=== PATIENT | female | born 1990 | race Caucasian/White ===

== ENCOUNTER 2018-09-10 09:45 | Inpatient (IN) ==
[2018-09-10] MEDS ORDERED: Sod Chloride 0.9% Inj 1,000 ML IV.CONT PRN (10:34)
[2018-09-10] MEDS ORDERED: fentaNYL Citrate Inj 100 MCG/2 ML Ampul IV.PUSH PRN ×2 (10:34)
[2018-09-10] MEDS ORDERED: Naloxone Inj 0.4 MG/ML Vial IV.PUSH PRN (10:34)
[2018-09-10] MEDS ORDERED: Oxytocin 30 Units/500ml Premix 30 UNITS/500 ML BAG IV.SIG ONE (10:34)
[2018-09-10] MEDS ORDERED: Sodium Chlor 0.9% Inj 500 ML IV.SIG PRN (10:34)
[2018-09-10] MEDS ORDERED: Citric Acid/Sodium Citrate Liq 30 ML UDC PO SCH (10:45)
--- NOTE | 2018-09-10 11:12 | P.HPOB ---
History of Present Illness Primary Care Physician: No Primary Care Physician Chief Complaint: back and left sided abdominal pain History of Present Illness: Patient is a 28-year-old (induced 6 weeks) at 40 / 0 weeks began to have left sided abdominal and back pain at a 4-5/10 and constant at 0600 today. She notes no aggravating or alleviating factors. She has had an uncomplicated up until this point and was scheduled for induction at 41 weeks. She did have two episodes of nonbloody bilious emesis this morning after trying to eat a piece of cake. No current nausea. She has no other symptoms at this time. Denies headache, dizziness, changes in vision, chest pain, palpitations, shortness of breath, dysuria, calf pain or tenderness. OB history: (induced 6 weeks) : Follows with Dr. Renee as an outpatient GBS negative Rh positive Uncomplicated to this point Past medical history: History of seizures last one in 2008. She reports these were episodes of altered consciousness without motor symptoms. She has a not been on medication since 2008 and has had no episodes She is on no other medications Past surgical history: Denies surgical history Weeks Gestation:: 40 Para: 0 : 2 Review of Systems All other systems reviewed negative except as stated in HPI PMFSH - Medical / Surgical Hx Neg / Unobtainable Surgical History: No Previous Surgery - Family History Family History: Family History (Last Updated 06/16/18 @ 13:21 by Ines Yanez MD, R1) Other Diabetes - Tobacco History Smoking Status: Never smoker - Alcohol History How Often Do You Have a Drink Containing Alcohol: Never - Substance Use History Substance History: No History of Abuse Medications and Allergies Allergies Allergy/AdvReac Type Severity Reaction Status Date / Time No Known Allergies Allergy Verified 09/10/18 12:14 Home Medications Medication Instructions Recorded Confirmed Type 1 tab PO DAILY 09/10/18 09/10/18 History Active Medications: Active Medications Citric Acid/Sodium Citrate (Sodium Citrate/Citric Acid Liq) 30 ml PO [facility] ATTENDANT [facility] Stop: 09/14/18 10:44 Fentanyl Citrate (Fentanyl Inj) 50 mcg IV.PUSH Q1H PRN PRN Reason: Pain Scale 3 - 5 Fentanyl Citrate (Fentanyl Inj) 100 mcg IV.PUSH Q1H PRN PRN Reason: PAIN SCALE 6 TO 10 Lactated Ringer's (Lr 1000 Ml Inj) 1,000 mls @ 125 mls/hr IV.CONT .Q8H [place] Sodium Chloride (Ns Inj) 500 mls @ 1,000 mls/hr IV.SIG UNSCH PRN PRN Reason: SEE LABEL COMMENTS Sodium Chloride (Ns Inj) 1,000 mls @ 100 mls/hr IV.CONT .Q10H PRN PRN Reason: SEE LABEL COMMENTS Oxytocin (Pitocin 30 Units/Ns 500 Ml Premix) 30 units in 500 mls @ 999 mls/hr IV.SIG BOLUS ONE Stop: 09/10/18 11:04 Lactated Ringer's (Lr 1000 Ml Inj) 1,000 mls @ 3,000 mls/hr IV.SIG UNSCH PRN PRN Reason: compromise or epidural Lidocaine HCl (Xylocaine 1% Inj) 0.1 ml I-DERMAL PRN PRN PRN Reason: For IV start Stop: 09/13/18 10:33 Lidocaine HCl (Xylocaine 1% Inj) 10 ml INFILTRATN PRN PRN PRN Reason: For episiotomy repair Stop: 09/12/18 10:33 Mineral Oil (Muri-Lube Oil) 10 ml TOPICAL PRN PRN PRN Reason: PRN perineal massage Naloxone HCl (Narcan Inj) 0.1 mg IV.PUSH Q2M PRN PRN Reason: for opiate reversal Exam Vital signs: Vital Signs 09/10/18 10:11 09/10/18 10:15 Temperature 98.0 F Pulse Rate 79 Respiratory Rate 20 Blood Pressure 117/67 Narrative: General: Alert, well appearing, in no acute distress Skin: Warm and dry HEENT: Atraumatic. Moist mucus membranes Cardiac: Regular rate and rhythm without murmur Pulmonary: No increased work of breathing. Clear to auscultation bilaterally with good air movement. Abdominal: Non-tender. Gravid uterus Extremities: 2+ pedal pulses, no edema, no calf tenderness Genitourinary: External Genitalia: intact and normal in appearance Dilatation: 4-5 Effacement: 60 Station: -1 Presentation: vertex Membranes: intact FHT: Category one tracing Contractions are difficult to assess due to patient's movement Results - Labs CBC & Chem 7: 09/10/18 11:10 Caprini VTE Risk Assessment Caprini VTE Risk Assessment: No/Low Risk (score <= 1) Caprini Risk Assessment Model: Point Value = 1 Point Value = 2 Point Value = 3 Point Value = 5 Age 41-60 Minor surgery BMI > 25 kg/m2 Swollen legs Varicose veins or History of unexplained or recurrent spontaneous Oral contraceptives or hormone replacement Sepsis (< 1 month) Serious lung disease, including pneumonia (< 1 month) Abnormal pulmonary function Acute myocardial infarction Congestive heart failure (< 1 month) History of inflammatory bowel disease Medical patient at bed rest Age 61-74 Arthroscopic surgery Major open surgery (> 45 min) Laparoscopic surgery (> 45 min) Malignancy Confined to bed (> 72 hours) Immobilizing plaster cast Central venous access Age >= 75 History of VTE Family history of VTE Factor V Leiden Prothrombin [id number] Lupus anticoagulant Anticardiolipin antibodies Elevated serum homocysteine Heparin-induced thrombocytopenia Other congenital or acquired thrombophilia Stroke (< 1 month) Elective arthroplasty Hip, pelvis, or leg fracture Acute spinal cord injury (< 1 month) Prophylaxis Regimen: Total Risk Factor Score Risk Level Prophylaxis Regimen 0-1 Low Early ambulation 2 Moderate Order ONE of the following: *Sequential Compression Device (SCD) *Heparin 5000 units SQ BID 3-4 Higher Order ONE of the following medications: *Heparin 5000 units SQ TID *Enoxaparin/Lovenox 40 mg SQ daily (WT < 150 kg, CrCl > 30 mL/min) *Enoxaparin/Lovenox 30 mg SQ daily (WT < 150 kg, CrCl > 10-29 mL/min) *Enoxaparin/Lovenox 30 mg SQ BID (WT < 150 kg, CrCl > 30 mL/min) AND/OR *Sequential Compression Device (SCD) 5 or more Highest Order ONE of the following medications: *Heparin 5000 units SQ TID (Preferred with Epidurals) *Enoxaparin/Lovenox 40 mg SQ daily (WT < 150 kg, CrCl > 30 mL/min) *Enoxaparin/Lovenox 30 mg SQ daily (WT < 150 kg, CrCl > 10-29 mL/min) *Enoxaparin/Lovenox 30 mg SQ BID (WT < 150 kg, CrCl > 30 mL/min) AND *Sequential Compression Device (SCD) Assessment and Plan - Diagnosis (1) 40 weeks gestation of Code(s): Z3A.40 - 40 weeks gestation of Status: Acute - Plan IUP at 40 weeks gestation Patient presented with abdominal pain and cervical change. -Yesterday she was seen by Dr. Renee and her cervix was closed/25-50/-2 -Today her cervix was 4-5/60/-1 at 1100 -She is experiencing increased pain, however this does not come in waves as typical contractions would -She is having some contractions on the monitor, however this is difficult to assess due to patient movement -Category one FHT -Admit to L&D and with expectant management History of seizure disorder -No medications or episodes since 2008 -No change in managements based on this history due to the stability of her condition Fluids: LR @ 125/hr Electrolytes: monitor and replete as needed Nutrition: sips and chips GI prophylaxis: not indicated VTE prophylaxis: none at this time - Attending Attestation The exam, history, and the medical decision-making described in the above note were completed with the assistance of the resident physician. I reviewed and agree with the findings presented. I attest that I had a [id number] encounter with the patient on the same day, and personally performed and documented my assessment and findings in the medical record. I discussed and evaluated patient with resident and agree with documentation. Patient to be admitted to L&D for expectant management of labor, plan for vaginal delivery.
[2018-09-10 11:39] LABS: Baso % (Auto) 0.5 % (0.0-2.0); Eos # (Auto) 0.1 th/mm3 (0.0-0.4); Eos % (Auto) 0.9 % (0.0-4.0); Hematocrit 36.4 % (35.0-46.0); Hemoglobin 12.2 gm/dL (11.6-15.3); Mean Corpuscular HGB Conc 33.4 % (32.0-36.0); Mean Corpuscular Hemoglobin 30.6 pg (27.0-34.0); Mean Corpuscular Volume 91.4 fL (80.0-100.0); Mean Platelet Volume 7.7 fL (7.0-11.0); Mono # (Auto) 0.7 th/mm3 (0.0-0.9); Mono % (Auto) 7.4 % (0.0-8.0); Neut # (Auto) 7.9 th/mm3 (1.8-7.7); Neut % (Auto) 81.2 % (16.0-70.0); Platelet Count 283 th/mm3 (150-450); Red Blood Count 3.99 mil/mm3 (4.00-5.30); Red Cell Distribution Width 15.1 % (11.6-17.2); White Blood Count 9.7 th/mm3 (4.0-11.0)
[2018-09-10] MEDS ORDERED: Oxytocin 30 Units/500ml Premix 30 UNITS/500 ML BAG IV.SIG PRN ×2 (13:30→19:22)
--- NOTE | 2018-09-10 13:39 | P.OBLABOR ---
Subjective Interval history: She is ambulating around the floor and now has intermittent pain that is tolerable. Objective Vital Signs: Vital Signs - 8 hr 09/10/18 10:11 09/10/18 10:15 09/10/18 13:25 Temperature 98.0 F Pulse Rate 79 83 Respiratory Rate 20 Blood Pressure 117/67 09/10/18 13:29 Temperature 97.6 F Pulse Rate Respiratory Rate Blood Pressure Objective: Pelvic Exam: Dilatation: 5 Effacement: 80 Station: -1 Presentation: vertex Membranes: intact Uterine Contractions:about [id number], however difficult to access due to her mobility FHT's: Category: 1 Baseline: 140 Reactive: yes Variability: moderate Decels: none Assessment and Plan - Diagnosis (1) 40 weeks gestation of Code(s): Z3A.40 - 40 weeks gestation of Status: Acute - Plan IUP at 40 weeks gestation Patient presented with abdominal pain and cervical change. -Yesterday she was seen by Dr. Renee and her cervix was closed/25-50/-2 -Today her cervix was 4-5/60/-1 at 1100, 5/80/-1 at 1330 -Category one FHT -Start Pitocin at 11/24/29 protocol
[2018-09-10] MEDS ORDERED: fentaNYL 2MCG-Bupiv 0.125% Epi 150 ML EPIDURAL ONE (13:59)
[2018-09-10 15:39] LABS: Bacteria,Urine Few /hpf; Bilirubin,Urine Negative (Negative); Clarity,Urine Cloudy (Clear); Glucose,Urine (UA) Negative (Negative); Leukocyte Esterase,Urine Trace (Negative); Mucus,Urine Few /lpf (Occasional); Nitrite,Urine Negative (Negative); Specific Gravity,Urine 1.017 (1.002-1.035); Squamous Epithelial Cell,Urine 9 /hpf (0-5)
[2018-09-10 15:42] LABS: Color,Urine Dark-Yellow (Yellw/Straw)
[2018-09-10 16:04] LABS: Amphetamine Urine With Conf Neg (Neg); Benzodiazepine Urine With Conf Neg (Neg)
[2018-09-10] MEDS ORDERED: Lidocaine 2%/Epinephrine 1:200,000 PF 10 ML SDV ONE (17:58)
--- NOTE | 2018-09-10 18:00 | P.OBLABOR ---
Subjective Interval history: Patient has continued to have little pain from her contractions. She is otherwise laboring well with no complaints. Objective Vital Signs: Vital Signs - 8 hr 09/10/18 10:11 09/10/18 10:15 09/10/18 13:05 Temperature 98.0 F Pulse Rate 79 80 Respiratory Rate 20 Blood Pressure 117/67 09/10/18 13:25 09/10/18 13:29 09/10/18 14:05 Temperature 97.6 F Pulse Rate 83 82 Respiratory Rate Blood Pressure 121/69 09/10/18 14:35 09/10/18 14:40 09/10/18 15:10 Temperature Pulse Rate 88 79 80 Respiratory Rate Blood Pressure 115/62 09/10/18 15:13 09/10/18 16:15 Temperature Pulse Rate 82 87 Respiratory Rate Blood Pressure 111/60 Objective: Pelvic Exam: Dilatation: 5-6 Effacement: 80 Station: -1 Presentation: vertex Membranes: intact Uterine Contractions:about [id number] FHT's: Category: 1 Baseline: 150 Reactive: yes Variability: moderate Decels: none Assessment and Plan - Diagnosis (1) 40 weeks gestation of Code(s): Z3A.40 - 40 weeks gestation of Status: Acute - Plan IUP at 40 weeks gestation Patient presented with abdominal pain and cervical change. -Yesterday she was seen by Dr. Renee and her cervix was closed/25-50/-2 -Today her cervix was 4-5/60/-1 at 1100, 5/80/-1 at 1330, and 5-6/80/-1 at -Category one FHT - scalp electrode placed -Pitocin at 11/24/19, currently at 5
--- NOTE | 2018-09-10 19:05 | P.OBLABOR ---
Subjective Interval history: Patient evaluated at about 1850 with nurse. She is comfortable, epidural in place, no pain. Objective Vital Signs: Vital Signs - 8 hr 09/10/18 13:05 09/10/18 13:25 09/10/18 13:29 Temperature 97.6 F Pulse Rate 80 83 Respiratory Rate Blood Pressure 09/10/18 14:05 09/10/18 14:35 09/10/18 14:40 Temperature Pulse Rate 82 88 79 Respiratory Rate Blood Pressure 121/69 115/62 09/10/18 15:10 09/10/18 15:13 09/10/18 16:00 Temperature 98.1 F Pulse Rate 80 82 98 H Respiratory Rate 18 Blood Pressure 111/60 114/60 09/10/18 16:15 09/10/18 16:25 09/10/18 17:05 Temperature Pulse Rate 87 89 87 Respiratory Rate Blood Pressure 135/71 124/68 09/10/18 17:40 09/10/18 18:25 Temperature Pulse Rate 89 97 H Respiratory Rate Blood Pressure 125/61 Objective: Pelvic Exam: Dilatation: 6-7 cm Effacement: 100% Station: -1 Presentation: vertex Membranes: ruptured Uterine Contractions: q3mins FHT's: Category: 1 Baseline: 140's Reactive: yes Variability: moderate Decels: none Assessment and Plan - Diagnosis (1) 40 weeks gestation of Code(s): Z3A.40 - 40 weeks gestation of Status: Acute - Plan IUP at 41/2 weeks gestation, in active labor - Category one FHT - Epidural in place - scalp electrodes replaced due to inadequate tracing - IUPC placed - Pitocin currently at 5 - Continue expectant management
[2018-09-10] MEDS ORDERED: fentaNYL Citrate Inj 100 MCG/2 ML Ampul EPIDURAL ONE (20:10)
[2018-09-10] MEDS ORDERED: fentaNYL 2MCG-Bupiv 0.125% Epi 150 ML EPIDURAL PRN (20:10)
[2018-09-11] MEDS ORDERED: Oxytocin 30 Units/500ml Premix 30 UNITS/500 ML BAG IV.CONT PRN (01:23)
[2018-09-11] MEDS ORDERED: Bisacodyl 10 MG Supp RECTAL PRN (01:23)
[2018-09-11] MEDS ORDERED: Naloxone Inj 0.4 MG/ML Vial IV.PUSH PRN (01:23)
[2018-09-11] MEDS ORDERED: Acetaminophen 325 MG Tablet PO PRN (01:23)
[2018-09-11] MEDS ORDERED: Zolpidem Tartrate 5 MG Tablet PO PRN (01:23)
--- NOTE | 2018-09-11 01:27 | P.OBDELI ---
Weeks Gestation: 40 Anesthesia: Epidural Episiotomy: none Vaginal Delivery: Normal, Spontaneous Presentation: Occiput anterior Nuchal Cord: None Delayed Cord Clamping (45 sec): Yes Placenta: Spontaneous delivery Laceration: Vaginal (side wall laceration, no bleeding, no sutures needed) Estimated blood loss (mL): 200 : Male, Single
[2018-09-11 02:06] VITALS: RESP 18
[2018-09-11] MEDS: Senna/Docusate Sodium 8.6/50 MG Tablet PO SCH ×2 (12:21→21:26)
[2018-09-11] MEDS ORDERED: Measles/Mumps/Rubella Vaccine Inj 0.5 ML Vial SQ ONE (16:00)
[2018-09-11] MEDS ORDERED: Diphtheria/Tetanus/Pertussis Vaccine Inj 0.5 ML Syringe IM ONE (16:00)
[2018-09-11] MEDS: Witch Hazel 50%/Glyderin 12.5% 40 Pad Jar RECTAL PRN (21:26)
[2018-09-11] MEDS: Benzocaine 20% Top Spray 60 ML Can TOPICAL PRN (21:26)
--- NOTE | 2018-09-12 08:19 | P.PNOB ---
Subjective Post day: 1 Interval history: Patient states that her pain is well controlled. Reports eating and drinking without any nausea or vomiting. Patient reports minimal bleeding. Patient has passed gas, but had no bowel movements. Patient is able to walk without lower extremity pain or shortness of breath. Objective Vital Signs/I&O: Vital Signs 09/11/18 20:00 Temperature 98.3 F Pulse Rate 83 Respiratory Rate 18 Blood Pressure 111/84 Result Diagrams: 09/10/18 11:10 Objective Remarks: GENERAL: Well-nourished, well-developed patient. CARDIOVASCULAR: Regular rate and rhythm without murmurs, gallops, or rubs. RESPIRATORY: Breath sounds equal bilaterally. No accessory muscle use. ABDOMEN/GI: Abdomen soft, non-tender. Fundus: Firm, non-tender at umbilicus. GENITOURINARY: Light to moderate bleeding. EXTREMITIES: No cyanosis or edema, non-tender, without signs of DVT. Medications and IVs: Active Medications Acetaminophen (Tylenol) 650 mg PO Q4H PRN PRN Reason: PAIN SCALE 1 TO 2 Last Admin: 09/11/18 01:39 Dose: 650 mg Al Hydroxide/Mg Hydroxide (Milk Of Magnesia Liq) 30 ml PO Q12H PRN PRN Reason: Mild Constipation Benzocaine (Americaine 20% [place]) 1 spray TOPICAL Q4H PRN PRN Reason: For Perineum Discomfort Last Admin: 09/11/18 21:26 Dose: 1 spray Bisacodyl (Dulcolax Supp) 10 mg RECTAL DAILY PRN PRN Reason: SEVERE CONSITIPATION Fentanyl/Bupivacaine/Sodium Chlor (Fentanyl 2 Mcg-Bupiv 0.125% Epi) 150 mls @ 12 mls/hr EPIDURAL PRN PRN PRN Reason: for Labor Pain Last Admin: 09/10/18 19:00 Dose: 12 mls/hr Oxytocin (Pitocin 30 Units/Ns 500 Ml Premix) 30 units in 500 mls @ 100 mls/hr IV.CONT UNSCH PRN PRN Reason: Heavy bleeding Ibuprofen (Motrin) 800 mg PO Q8H PRN PRN Reason: For Cramping Last Admin: 09/11/18 21:26 Dose: 800 mg Influenza Virus Vaccine (Fluarix (Quad) Vaccine Inj) 0.5 ml IM .ONCE ONE Stop: 09/12/18 09:01 Lactulose (Lactulose Liq) 30 ml PO DAILY PRN PRN Reason: SEVERE CONSITIPATION Naloxone HCl (Narcan Inj) 0.1 mg IV.PUSH Q2M PRN PRN Reason: for opiate reversal Ondansetron HCl (Zofran Odt) 4 mg PO Q6H PRN PRN Reason: NAUSEA OR VOMITING Senna/Docusate Sodium (Jonelle-Colace) 1 tab PO BID [facility] Last Admin: 09/11/18 21:26 Dose: 1 tab Sennosides (Senokot) 17.2 mg PO Q12H PRN PRN Reason: Moderate Constipation Sodium Chloride (Ns Flush) 2 ml IV.FLUSH BID [facility] Last Admin: 09/11/18 21:16 Dose: Not Given Sodium Chloride (Ns Flush) 2 ml IV.FLUSH PRN PRN PRN Reason: FLUSH AFTER USING IV ACCESS Witch Leelee/Glycerin (Tucks Pads) 1 applicatio RECTAL QID PRN PRN Reason: HEMORRHOIDS Last Admin: 09/11/18 21:26 Dose: 1 applicatio Zolpidem Tartrate (Ambien) 5 mg PO HS PRN PRN Reason: SLEEP Assessment and Plan - Diagnosis (1) 40 weeks gestation of Code(s): Z3A.40 - 40 weeks gestation of Status: Acute - Plan 28 y/o female who is PPD# 1 s/p vaginal delivery -Continue routine care. -Motrin /APAP as needed for pain. -Encouraged OOB. Advised pelvic rest for 6 wks. - control: Undecided as to method. -BP stable over last 24hours - Attending Attestation Case reviewed and discussed with the resident team to include Dr. Bocanegra Agree with plan of care as discussed with me and documented in the resident note. .
[2018-09-12] MEDS: Senna/Docusate Sodium 8.6/50 MG Tablet PO SCH ×2 (08:25→21:28)
[2018-09-12] MEDS ORDERED: Influenza (Quadrivalent) Vaccine 0.5 ML Syringe IM ONE (09:00)
--- NOTE | 2018-09-12 12:09 | P.PNOB ---
Subjective Post day: 0 Interval history: Called to see patient c/o left sided flank pain. Patient states she was laying on that side, and noted sudden onset pain. Pain is constant. No dysuria. Pain worse with movement. no fevers or chills Objective Vital Signs/I&O: Vital Signs 09/11/18 20:00 09/12/18 08:00 09/12/18 11:10 Temperature 98.3 F 97.6 F Pulse Rate 83 64 88 Respiratory Rate 18 18 Blood Pressure 111/84 103/54 L 102/78 Result Diagrams: 09/10/18 11:10 Objective Remarks: GENERAL: Well-nourished, well-developed patient. CARDIOVASCULAR: Regular rate and rhythm without murmurs, gallops, or rubs. RESPIRATORY: Breath sounds equal bilaterally. No accessory muscle use. ABDOMEN/GI: Abdomen soft, minimally tender left flank. No CVA TENDERNESS No guarding or rebound.. Fundus: Firm, non-tender at 2FB below umbilicus. Non-tender GENITOURINARY: Light to moderate bleeding. EXTREMITIES: No cyanosis or edema, non-tender, without signs of DVT. Medications and IVs: Active Medications Acetaminophen (Tylenol) 650 mg PO Q4H PRN PRN Reason: PAIN SCALE 1 TO 2 Last Admin: 09/11/18 01:39 Dose: 650 mg Al Hydroxide/Mg Hydroxide (Milk Of Bryanna Lyman) 30 ml PO Q12H PRN PRN Reason: Mild Constipation Benzocaine (Americaine 20% Top [place]) 1 spray TOPICAL Q4H PRN PRN Reason: For Perineum Discomfort Last Admin: 09/11/18 21:26 Dose: 1 spray Bisacodyl (Dulcolax Supp) 10 mg RECTAL DAILY PRN PRN Reason: SEVERE CONSITIPATION Fentanyl/Bupivacaine/Sodium Chlor (Fentanyl 2 Mcg-Bupiv 0.125% Epi) 150 mls @ 12 mls/hr EPIDURAL PRN PRN PRN Reason: for Labor Pain Last Admin: 09/10/18 19:00 Dose: 12 mls/hr Oxytocin (Pitocin 30 Units/Ns 500 Ml Premix) 30 units in 500 mls @ 100 mls/hr IV.CONT UNSCH PRN PRN Reason: Heavy bleeding Ibuprofen (Motrin) 800 mg PO Q8H PRN PRN Reason: For Cramping Last Admin: 09/12/18 08:31 Dose: 800 mg Lactulose (Lactulose Liq) 30 ml PO DAILY PRN PRN Reason: SEVERE CONSITIPATION Naloxone HCl (Narcan Inj) 0.1 mg IV.PUSH Q2M PRN PRN Reason: for opiate reversal Ondansetron HCl (Zofran Odt) 4 mg PO Q6H PRN PRN Reason: NAUSEA OR VOMITING Oxycodone/Acetaminophen (Percocet 5/325 Mg) 2 tab PO Q4H PRN PRN Reason: ABDOMINAL PAIN Senna/Docusate Sodium (Jonelle-Colace) 1 tab PO BID [facility] Last Admin: 09/12/18 08:25 Dose: 1 tab Sennosides (Senokot) 17.2 mg PO Q12H PRN PRN Reason: Moderate Constipation Sodium Chloride (Ns Flush) 2 ml IV.FLUSH BID [facility] Last Admin: 09/12/18 08:25 Dose: Not Given Sodium Chloride (Ns Flush) 2 ml IV.FLUSH PRN PRN PRN Reason: FLUSH AFTER USING IV ACCESS Witch Leelee/Glycerin (Tucks Pads) 1 applicatio RECTAL QID PRN PRN Reason: HEMORRHOIDS Last Admin: 09/11/18 21:26 Dose: 1 applicatio Zolpidem Tartrate (Ambien) 5 mg PO HS PRN PRN Reason: SLEEP Assessment and Plan - Diagnosis (1) Vaginal delivery Code(s): O80 - Encounter for full-term uncomplicated delivery Status: Acute (2) Left flank pain Code(s): R10.9 - Unspecified abdominal pain Status: Acute Plan: No acute abdomen. Will order renal ultrasound. Po Percocet PRN for pain. Will resend UA. - Plan IUP at 41/2 weeks gestation, in active labor - Category one FHT - Epidural in place - scalp electrodes replaced due to inadequate tracing - IUPC placed - Pitocin currently at 5 - Continue expectant management
[2018-09-12 12:44] LABS: Bacteria,Urine Occasional /hpf; Bilirubin,Urine Negative (Negative); Clarity,Urine Hazy (Clear); Color,Urine Yellow (Yellw/Straw); Glucose,Urine (UA) Negative (Negative); Leukocyte Esterase,Urine Moderate (Negative); Mucus,Urine Few /lpf (Occasional); Nitrite,Urine Negative (Negative); Specific Gravity,Urine 1.015 (1.002-1.035); Squamous Epithelial Cell,Urine 8 /hpf (0-5)
--- NOTE | 2018-09-12 15:19 | US ---
EXAM DATE: 09/12/2018 11:59 AM EDT AGE/SEX: 28 years / Female INDICATIONS: Left flank pain. Post- 09/11/2018. CLINICAL DATA: This is the patient's initial encounter. Patient reports that signs and symptoms have been present for 1 day and indicates a pain score of 0/10. MEDICAL/SURGICAL HISTORY: . Seizures. None. COMPARISON: None. MEASUREMENTS: Right Kidney:__12.8 x 5.2 x 5.2 cm Left Kidney:__12.2 x 6.3 x 5.8 cm FINDINGS: Right Kidney: Normal echotexture and cortical thickness. No mass or hydronephrosis. Left Kidney: Normal echotexture and cortical thickness. There is mild hydronephrosis on the left of i ndeterminate etiology. Bladder: Within normal limits given the degree of distension. Other: None. CONCLUSION: 1. Mild left-sided hydronephrosis of indeterminate etiology. Electronically signed by: Rajinder Elizondo MD 09/12/2018 3:18 PM EDT
[2018-09-12] MEDS: Nitrofurantoin Monohydrate-Macrocrystal 100 MG Capsule PO SCH (18:07)
[2018-09-13] MEDS: Nitrofurantoin Monohydrate-Macrocrystal 100 MG Capsule PO SCH (08:00)
[2018-09-13] MEDS: Senna/Docusate Sodium 8.6/50 MG Tablet PO SCH (08:01)
[2018-09-13 08:06] VITALS: BP 113/72; PULSE 81; TEMP 97.7
--- NOTE | 2018-09-13 09:13 | P.PNOB ---
Subjective Post day: 2 Interval history: Patient is a 28-year-old delivered at 41 weeks and 3 days. Patient is day 2 after NVD. Patient's pain is well-controlled. Patient reports minimal bleeding. Patient reports eating and drinking without any nausea or vomiting. Patient has passed gas and has had a bowel movement. Patient denies chest pain and shortness of breath. Patient has been ambulating; she denies lower extremity pain. Patient reports desire for contraception, which she will discuss with her PCP at her first follow-up visit. Patient has decided to formula and breast-feed. Of note, OB hospitalist called yesterday afternoon for evaluation of flank pain. Patient diagnosed with UTI per UA; she was started on Macrobid. Patient reports feeling better today; she continues to have some burning with urination but no longer experiences flank pain. Objective Vital Signs/I&O: Vital Signs 09/12/18 11:10 09/12/18 19:41 09/13/18 08:00 Temperature 97.6 F 97.7 F Pulse Rate 88 74 81 Respiratory Rate 18 18 Blood Pressure 102/78 126/69 113/72 Result Diagrams: 09/10/18 11:10 Objective Remarks: GENERAL: Well-nourished, well-developed patient. CARDIOVASCULAR: Regular rate and rhythm without murmurs, gallops, or rubs. RESPIRATORY: Breath sounds equal bilaterally. No accessory muscle use. ABDOMEN/GI: Abdomen soft, non-tender. Fundus: Firm, minimally-tender at umbilicus. GENITOURINARY: Light to moderate bleeding. EXTREMITIES: No cyanosis or edema, non-tender, without signs of DVT. Medications and IVs: Active Medications Acetaminophen (Tylenol) 650 mg PO Q4H PRN PRN Reason: PAIN SCALE 1 TO 2 Last Admin: 09/11/18 01:39 Dose: 650 mg Al Hydroxide/Mg Hydroxide (Milk Of Magnesia Liq) 30 ml PO Q12H PRN PRN Reason: Mild Constipation Benzocaine (Americaine 20% Top [place]) 1 spray TOPICAL Q4H PRN PRN Reason: For Perineum Discomfort Last Admin: 09/11/18 21:26 Dose: 1 spray Bisacodyl (Dulcolax Supp) 10 mg RECTAL DAILY PRN PRN Reason: SEVERE CONSITIPATION Fentanyl/Bupivacaine/Sodium Chlor (Fentanyl 2 Mcg-Bupiv 0.125% Epi) 150 mls @ 12 mls/hr EPIDURAL PRN PRN PRN Reason: for Labor Pain Last Admin: 09/10/18 19:00 Dose: 12 mls/hr Oxytocin (Pitocin 30 Units/Ns 500 Ml Premix) 30 units in 500 mls @ 100 mls/hr IV.CONT UNSCH PRN PRN Reason: Heavy bleeding Ibuprofen (Motrin) 800 mg PO Q8H PRN PRN Reason: For Cramping Last Admin: 09/12/18 21:58 Dose: 800 mg Lactulose (Lactulose Liq) 30 ml PO DAILY PRN PRN Reason: SEVERE CONSITIPATION Naloxone HCl (Narcan Inj) 0.1 mg IV.PUSH Q2M PRN PRN Reason: for opiate reversal [facility] Last Admin: 09/13/18 08:00 Dose: 100 mg Ondansetron HCl (Zofran Odt) 4 mg PO Q6H PRN PRN Reason: NAUSEA OR VOMITING Oxycodone/Acetaminophen (Percocet 5/325 Mg) 2 tab PO Q4H PRN PRN Reason: ABDOMINAL PAIN Last Admin: 09/12/18 12:15 Dose: 2 tab Senna/Docusate Sodium (Jonelle-Colace) 1 tab PO BID [facility] Last Admin: 09/13/18 08:01 Dose: 1 tab Sennosides (Senokot) 17.2 mg PO Q12H PRN PRN Reason: Moderate Constipation Sodium Chloride (Ns Flush) 2 ml IV.FLUSH BID [facility] Last Admin: 09/13/18 08:01 Dose: Not Given Sodium Chloride (Ns Flush) 2 ml IV.FLUSH PRN PRN PRN Reason: FLUSH AFTER USING IV ACCESS Witch [place]lee/Glycerin (Tucks Pads) 1 applicatio RECTAL QID PRN PRN Reason: HEMORRHOIDS Last Admin: 09/11/18 21:26 Dose: 1 applicatio Zolpidem Tartrate (Ambien) 5 mg PO HS PRN PRN Reason: SLEEP Last Admin: 09/12/18 23:20 Dose: 5 mg Assessment and Plan - Diagnosis (1) 40 weeks gestation of Code(s): Z3A.40 - 40 weeks gestation of Status: Acute - Plan Patient is a 28-year-old delivered at 41 weeks and 3 days. Patient is day 2 after NVD. Continue routine care. Motrin when necessary for pain. Encourage OOB. Pelvic rest for 6 weeks will need follow-up appointment at that time. Contraception: To discuss with her OB provider. Macrobid x6 additional days. Anticipate discharge today. [place] OB hospitalist
[2018-09-13] MEDS: Witch Hazel 50%/Glyderin 12.5% 40 Pad Jar RECTAL PRN (11:45)
[2018-09-13] MEDS: Benzocaine 20% Top Spray 60 ML Can TOPICAL PRN (11:45)
== END 2018-09-13 12:46 | disposition home or self-care (01) ==
LOC: HOBED 09:45 → H2E 10:58 → H1EA 09-11 03:34
PROVIDERS: ADMIT Obstetrics & Gynecology Maternal & Fetal Medicine; ATTEND Obstetrics & Gynecology Maternal & Fetal Medicine